=== PATIENT | male | born 2000 | race Caucasian/White ===

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

== ENCOUNTER 2022-07-08 02:45 | Emergency (ER) | payer MEDICAID, SELFPAY ==
[2022-07-08 02:48] VITALS: BP 134/73; PULSE 94; RESP 16; TEMP 37; O2SAT 97
--- NOTE | 2022-07-08 02:55 | ED.GENADUL_ITS ---
Discharge Plan Disposition Patient Disposition: Home Condition: Improving Discharge Details Clinical Impression: Vomiting, Abdominal pain Primary Care Provider: Riley Benjamin ED Provider: Ernestine Garcia Home Meds and New Rx's Prescriptions: No Action No Known Home Meds Discharge Instructions Instructions: Acute Nausea and Vomiting (ED), Abdominal Pain (ED) Additional Instructions: Your blood test today showed that you have an elevated white blood cell count which can be sometimes seen in a stress response with vomiting. One of your liver function tests were minimally elevated. This can be related to diet or alcohol. Follow-up with your primary care doctor for recheck of this test as needed. The remainder of your blood tests today are reassuring. Your COVID, influenza and RSV test today are negative. Drink plenty of fluids and get plenty of rest. Alternate tylenol and motrin as needed and directed for pain. Take Zofran as needed and directed for nausea and vomiting. You can start taking an [id number] Pepcid or Prilosec once daily for the next 2 weeks. Follow-up with your primary care doctor in 1 week. Return to the emergency department with any worsening or new concerning symptoms. Stand Alone Forms: Work Release Discharge Data Discharge Physician: Ernestine Garcia Medical Decision Making 0255 -- 22-year-old male presents with intermittent crampy upper abdominal pain yesterday much worse with 1 episode of vomiting starting 2 hours ago. Patient states the pain is much improved. His vitals are within normal limits. He appears comfortable and nontoxic. His abdomen is soft but tender in the left and right upper quadrants and left lower quadrant. He has no right lower quadrant tenderness, rebound, guarding or peritoneal signs. Differential diagnosis includes gastritis, PUD, cholelithiasis, cholecystitis. He has no right lower quadrant tenderness, so appendicitis less likely. Discussed with patient that we can proceed with CT imaging but he declines. He is agreeable with plan for blood work and will give a dose of IV Tylenol, IV Pepcid, IV Zofran and reassess. 0410 -- Labs reviewed. White blood cell count 12.77. AST minimally elevated at 58. Remainder of blood tests appear reassuring. FLUVID negative. Patient reassessed and he feels much better and would like to go home. He requested a work note. Patient advised to follow-up with his primary care doctor for reevaluation. He is advised to return here immediately if symptoms do not improve or worsen for reevaluation and consideration for CT imaging at that time. Medical Records Medical records reviewed: Yes I reviewed the patient's medical records. Lab Data Lab results reviewed: Yes I reviewed the patient's lab results. Labs: Laboratory Tests Range/Units 07/08/22 07/08/22 07/08/22 03:00 03:00 03:00 WBC (4.4-10.8) 10^3/uL 12.77 H RBC (4.36-5.78) 10^6/uL 5.13 Hgb (13.5-17.5) g/dL 15.1 Hct (40.0-50.0) % 42.6 MCV (80-95) fL 83 MCH (27.0-33.0) pg 29.4 MCHC (32.0-36.0) % 35.4 RDW (11.8-14.1) % 12.3 Plt Count (130-400) 10^3/uL 292 MPV (8.0-11.0) fL 9.1 Immature Gran % 0.5 Neutrophils % 85.4 Lymphocytes % 7.0 Monocytes % 6.5 Eosinophils % 0.4 Basophils % 0.2 Nucleated RBC % (0.0-0.3) % 0.0 Absolute Neutrophils (1.2-6.7) 10^3/uL 10.91 H Absolute Lymphocytes (1.2-3.4) 10^3/uL 0.89 L Absolute Monocytes (0.1-0.8) 10^3/uL 0.83 H Absolute Eosinophils (0.0-0.7) 10^3/uL 0.05 Absolute Basophils (0.0-0.2) 10^3/uL 0.03 Sodium (136-145) mmol/L 143 Potassium (3.5-5.1) mmol/L 3.6 Chloride (98-107) mmol/L 107 Carbon Dioxide (21.0-32.0) mmol/L 26.3 Anion Gap (3-11) mmol/L 9.7 BUN (7-18) mg/dL 14 Creatinine (0.70-1.30) mg/dL 1.1 Est GFR (CKD-EPI 2020) (mL/min/1.73m2) 97.95 Glucose (74-106) mg/dL 143 H Calcium (8.5-10.1) mg/dL 8.8 Total Bilirubin (0.2-1.0) mg/dL 0.9 AST (15-37) U/L 58 H ALT (16-63) U/L 59 Alkaline Phosphatase (46-116) U/L 87 Total Protein (6.4-8.2) g/dL 7.2 Albumin (3.4-5.0) g/dL 4.2 Lipase (16-77) U/L 38 COVID-19 Source Nasopharynx SARS-CoV-2 (PCR) (Negative) Negative Influenza Type A (PCR) (Negative) Negative Influenza Type B (PCR) (Negative) Negative RSV (PCR) (Negative) Negative HPI General Mode of arrival: ambulatory . Date/Time Provider Initiated Documentation: 07/08/22 02:49 . Limitations to Documentation: no limitations . Information obtained by: patient . HPI Narrative: Patient is a 22-year-old male who presents with intermittent abdominal pain yesterday much worse since 1 AM. Patient states he did not think much of the intermittent crampy abdominal pain yesterday. He states he ate a [employer] sandwich last night before bed. He states he woke up 2 hours ago with severe crampy upper abdominal pain. He states he vomited once and thought the pain would improve but then it returned. He states the vomit mostly consisted of the [employer] sandwich he ate last night. He denies any hematemesis. Patient states it was on both sides but mainly in the right upper side on the way to the emergency department. Patient states he did take 3 tabs of Advil prior to arrival and now the pain is much improved. He states the pain was 10/10 and is now 2/10. He denies any aggravating factors. He states he did drink 3 beers last night. He denies any history of abdominal surgeries. Related Data Home Medications Medication Instructions Recorded Confirmed Unknown [No Known Home Meds] 04/12/15 07/08/22 Allergies Allergy/AdvReac Type Severity Reaction Status Date / Time No Known Allergies Allergy Unverified 08/07/18 17:35 General Stated Complaint: Abd Prob HANY: 3 Review of Systems All systems reviewed & are unremarkable except as noted in HPI and below Constitutional Constitutional: Reports as per HPI, Denies chills and Denies fever(s) Eyes Eyes: Denies blurry vision ENT Ears, Nose, Mouth, and Throat: Denies dizziness, Denies sore throat and Denies throat swelling Cardiovascular Cardiovascular: Denies chest pain and Denies dyspnea Respiratory Respiratory: Denies cough and Denies dyspnea Gastrointestinal Gastrointestinal: Reports abdominal pain, Denies diarrhea and Reports vomiting Genitourinary Genitourinary: Denies hematuria and Denies dysuria Musculoskeletal Musculoskeletal: Denies back pain and Denies numbness Integumentary/Breasts Skin/Breast: Denies lesions and Denies rash Neurologic Neurologic: Denies dizziness, Denies localized weakness and Denies numbness Allergic/Immunologic Allergic/Immunologic: Denies throat swelling PFSH All Active Problems (Updated 07/08/22 @ 04:11 by Ernestine Garcia DO) Vomiting (Acute) Abdominal pain (Acute) Medical History (Updated 07/08/22 @ 04:11 by Ernestine Garcia DO) Osteochondroma of ankle Osteochondroma of forearm Surgical History (Updated 07/08/22 @ 03:49 by Ernestine Garcia DO) Osteochondroma left wrist, right ankle Social History Smoking/Tobacco Use Status: Never Smoking risk assessment performed?: Yes Alcohol Intake: current Alcohol Intake frequency: a few times a week Drug use: Never Substance use type: does not use Do you feel safe at home: Yes Do you feel safe in your relationship?: Yes Exam Const General: cooperative and no acute distress Orientation: alert, awake and oriented x3 HENMT Head: normal to inspection Face and sinus: normal facial exam Eyes General: appearance normal, both eyes and all related structures Pupils: PERRL EOM: EOM intact bilaterally Neck Neck: normal visual inspection and No submandibular swelling Lymphatic: no lymphadenopathy noted Chest Chest: normal inspection of the chest and no tenderness Resp Effort & Inspection: normal respiratory effort and able to speak in complete sentences Auscultation: clear to auscultation bilaterally Cardio Rate: regular rate Rhythm: regular rhythm GI Inspection: normal to inspection Palpation: soft, not firm, not rigid and tender in the epigastrum, in the LLQ, in the LUQ and in the RUQ Auscultation: hypoactive bowel sounds Back/Spine/Pelvis Thoracic/Lumbar Spine: thoracic and lumbar spine normal to inspection Pelvis: no pain with anterior-posterior compression Skin General skin exam: no rashes or lesions noted Neuro General: patient alert, patient awake and patient oriented x3 Cognition: normal cognition Speech: speech normal Motor: muscle tone normal throughout Sensory Exam: no sensory deficits noted Extrem General: normal to inspection, full ROM, capillary refill normal, no calf tenderness bilaterally and no edema Psych Appearance: grossly normal Mental Status: mental status grossly normal Speech and Movement: speech and movement normal Affect: normal affect Course Vital Signs Vital signs: Vital Signs Temperature 98.6 F 07/08/22 02:48 Pulse 94 H 07/08/22 02:48 Respiratory Rate 16 07/08/22 02:48 Blood Pressure 134/73 07/08/22 02:48 Pulse Oximetry 97 07/08/22 02:48 Temperature 98.6 F 07/08/22 02:48 Temperature Source Oral 07/08/22 02:48 Pulse 94 H 07/08/22 02:48 Respiratory Rate 16 07/08/22 02:48 Blood Pressure 134/73 07/08/22 02:48 Blood Pressure Position Sitting 07/08/22 02:48 Pulse Oximetry 97 07/08/22 02:48 Oxygen Delivery Method Room Air 07/08/22 02:48 Oxygen Flow Rate 0 07/08/22 02:48 Pain Level 6 07/08/22 02:48
[2022-07-08] MEDS: Normal Saline 1,000 ML 1000 ML IV (03:05)
[2022-07-08 03:12] LABS: Abs Immature Grans 0.06 10^3/uL (0.0-0.06); Absolute Eosinophil Count 0.05 10^3/uL (0.0-0.7); Absolute Monocyte Count 0.83 10^3/uL (0.1-0.8); Absolute Neutrophil Count 10.91 10^3/uL (1.2-6.7); Basophils % 0.2; Eosinophils % 0.4; HCT 42.6 % (40.0-50.0); HGB 15.1 g/dL (13.5-17.5); Immature Grans % 0.5; MCH 29.4 pg (27.0-33.0); MCHC 35.4 % (32.0-36.0); MCV 83 fL (80-95); MPV 9.1 fL (8.0-11.0); Monocytes % 6.5; Neutrophils % 85.4; Platelet Count 292 10^3/uL (130-400); RBC 5.13 10^6/uL (4.36-5.78); RDW 12.3 % (11.8-14.1); RDW-SD 37.4 fL; WBC 12.77 10^3/uL (4.4-10.8)
[2022-07-08 03:14] LABS: Absolute Basophil Count 0.03 10^3/uL (0.0-0.2); Absolute Lymphocyte Count 0.89 10^3/uL (1.2-3.4)
[2022-07-08 03:21] LABS: ALT 59 U/L (16-63); AST 58 U/L (15-37); Albumin 4.2 g/dL (3.4-5.0); Alkaline Phosphatase 87 U/L (46-116); Anion Gap 9.7 mmol/L (3-11); BUN 14 mg/dL (7-18); Bilirubin, Total 0.9 mg/dL (0.2-1.0); CO2 26.3 mmol/L (21.0-32.0); CREATININE 1.1 mg/dL (0.70-1.30); Calcium 8.8 mg/dL (8.5-10.1); Chloride 107 mmol/L (98-107); Estimated GFR 97.95 (mL/min/1.73m2); Glucose 143 mg/dL (74-106); Lipase 38 U/L (16-77); Potassium 3.6 mmol/L (3.5-5.1); Sodium 143 mmol/L (136-145); Total Protein 7.2 g/dL (6.4-8.2)
[2022-07-08] MEDS: Famotidine 20 MG/2 ML VIAL IVP (03:27)
[2022-07-08] MEDS: ACETAMINOPHEN 1,000 MG/100 ML BTL 400 MG IVPB (03:28)
[2022-07-08] MEDS: Ondansetron 4 MG/2 ML VIAL IVP (03:28)
[2022-07-08 03:44] LABS: COVID-19 PCR Negative (Negative); Influenza A PCR Negative (Negative); Influenza B PCR Negative (Negative); RSV PCR Negative (Negative)
[2022-07-08 04:04] LABS: Source Nasopharynx
[2022-07-08] MEDS: Ondansetron O.D.T. 4 MG TABEF, 3 TABS/BTL PO (04:23)
[2022-07-08 04:25] VITALS: BP 115/49; PULSE 69; RESP 16; TEMP 36.1; O2SAT 96
== END 2022-07-08 04:27 | disposition home or self-care (01) ==
PROVIDERS: Emergency Provider Physician Assistant; PCP Family Medicine
DX: R11.2 Nausea with vomiting, unspecified (principal); R10.11 Right upper quadrant pain; R10.12 Left upper quadrant pain; R10.32 Left lower quadrant pain; D72.829 Elevated white blood cell count, unspecified; R74.01 Elevation of levels of liver transaminase levels; Z20.822 Contact with and (suspected) exposure to COVID-19
CPT/HCPCS: 80053; 83690; 87637; 96361; 96374; 96375; 99284; 85025; J0131; J2405

== ENCOUNTER → 2022-11-25 13:24 | Outpatient (CLI) | payer MEDICAID, SELFPAY ==
--- NOTE | 2022-11-25 13:40 | DI.RAD_ITS ---
Exam(s) XR KNEE LT 4V AP,LAT,RAJEEV,PAT EXAM: XR KNEE LT 4V AP,LAT,RAJEEV,PAT CLINICAL HISTORY: evaluate pathology. TECHNIQUE: 2D digital imaging was performed of the left knee. Five images were obtained. Merchant, AP, lateral and PA tunnel views were obtained. COMPARISON: CR LEFT FEMUR from 06/19/2017 FINDINGS: BONES: No acute fracture is present. No bony destructive lesion is seen. There are several osteochon dromas present in the distal femur and proximal tibia. JOINTS: The knee is normally aligned. There is a small joint effusion. No loose body. SOFT TISSUE: Normal. IMPRESSION: 1. No acute fracture or dislocation. 2. Multiple osteochondromas seen in the proximal tibia, fibula and distal femur. 3. Small joint effusion. DATA REPOSITORY: RADIATION DOSE DELIVERED:
--- NOTE | 2022-11-25 13:52 | DI.VRAD_ITS ---
PROCEDURE INFORMATION: Exam: XR Left Knee Exam date and time: 11/25/2022 1:31 PM Age: 22 years old Clinical indication: Knee; Left; Prior surgery; Surgery date: 6+ months; Surgery type: HX osteochondroma; Patient HX: Pain post playing football TECHNIQUE: Imaging protocol: Radiologic exam of the left knee. Views: 4 or more views. COMPARISON: CR LEFT FEMUR 06/19/2017 8:18 AM FINDINGS: Bones/joints: Multiple osteochondromas again arise from the distal femur, with associated modeling deformity. There are also multiple osteochondromas arising from the proximal tibia and fibula. No acute fracture or dislocation is identified. Soft tissues: Mild fullness of the soft tissues in the suprapatellar region is noted. The soft tissues appear otherwise grossly unremarkable. IMPRESSION: 1. Mild suprapatellar soft tissue fullness suggesting effusion and/or synovial hypertrophy, without acute fracture or dislocation identified. 2. Osteochondromas of the distal femur and proximal tibia and fibula. Dictated and Authenticated by: Wade Fraser MD. Ordering:FELECIA Spears MD
== END ==
PROVIDERS: PCP Family Medicine; Visit Provider Nurse Practitioner Family
DX: D16.22 Benign neoplasm of long bones of left lower limb; M25.562 Pain in left knee
CPT/HCPCS: 73564

== ENCOUNTER 2022-12-08 07:42 | Emergency (ER) | payer MEDICAID, SELFPAY ==
[2022-12-08 07:44] VITALS: BP 117/71; PULSE 85; RESP 14; TEMP 37; O2SAT 99
--- NOTE | 2022-12-08 08:00 | DI.CT_ITS ---
Exam(s) CT HEAD CERVICAL SPINE WO EXAM: CT HEAD CERVICAL SPINE WO CLINICAL HISTORY: trauma. TECHNIQUE: Imaging Protocol: Axial computed tomography images with coronal and sagittal reformatted images were created and reviewed COMPARISON: No exams were available for comparison FINDINGS: Head CT Ventricles and Extra axial spaces: Normal in size and morphology for the patient's age. Hemorrhage: None. Cerebral parenchyma: Normal. No infarct or mass visible. Midline shift: None. Brainstem/Cerebellum: Low lying cerebellar tonsils. Not well evaluated due to artifact in this area. Calvarium: Normal. Visualized Paranasal sinuses/Mastoids: Clear. Soft tissues: Unremarkable. Cervical Spine CT BONES: Vertebral body heights are maintained. Alignment is normal. There is no evidence of acute frac ture. Degenerative disc changes and facet degenerative changes are seen . SOFT TISSUES: No paraspinal hematoma. The airway appears intact. No pneumothorax is seen at the lung apices. IMPRESSION: Head CT: No acute abnormality. Low lying cerebellar tonsils. MRI could be considered for further ev aluation. C-spine CT: Degenerative changes, no acute abnormality. Unexpected findings RADIATION DOSE DELIVERED: 1,261.57mGy.cm Total DLP DATA REPOSITORY: All CT scans at this facility are submitted to the National Radiology Data Registry (NRDR) Dose Index Registry (DIR) with the [employer] ([employer]). RADIATION OPTIMIZATION: All CT scans at this facility use at least one of these dose optimization te chniques: automated exposure control; mA and/or kV adjustment per patient size (includes targeted exa ms where dose is matched to clinical indication); or iterative reconstruction.
--- NOTE | 2022-12-08 08:00 | DI.RAD_ITS ---
Exam(s) XR CLAVICLE LT EXAM: XR CLAVICLE LT CLINICAL HISTORY: trauma TECHNIQUE: 2D digital imaging was performed. Two views COMPARISON: CR LEFT CLAVICLE from 05/04/2015 FINDINGS: BONES: Nondisplaced fracture mid clavicle. Patient had a previous clavicle fracture in a similar loc ation. This appears acute. Mild inferior angulation. No bony destructive lesion is seen. JOINTS: AC joint not widened. SOFT TISSUE: Unremarkable. IMPRESSION: Acute mid clavicle fracture. DATA REPOSITORY: RADIATION DOSE DELIVERED:
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
[2022-12-08] MEDS: Ibuprofen 600 MG TAB PO (08:16)
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
--- NOTE | 2022-12-08 09:06 | NUR.NOTE ---
Pt referred to Care Management for follow up in 3 days with a Primary Care due to a Head Injury Pt referred to Ortho for a Clavicle Fracture-Pt discharged with a sling. Nursing Note:
--- NOTE | 2022-12-10 10:27 | NUR.NOTE ---
Nursing Note: PT presented to the ED today for another work note. His employer wanted more information as to what he can and cannot do. Work note provided.
== END 2022-12-08 09:37 | disposition home or self-care (01) ==
PROVIDERS: Emergency Provider Nurse Practitioner Family; PCP Nurse Practitioner Family
DX: S06.0X0A Concussion without loss of consciousness, initial encounter (principal); S16.1XXA Strain of muscle, fascia and tendon at neck level, initial encounter; S42.025A Nondisplaced fracture of shaft of left clavicle, initial encounter for closed fracture; V86.06XA Driver of dirt bike or motor/cross bike injured in traffic accident, initial encounter; Y92.488 Other paved roadways as the place of occurrence of the external cause
CPT/HCPCS: 99284; 70450; 72125; 73000

== ENCOUNTER 2022-12-24 11:02 | Outpatient (CLI) | payer MEDICAID, SELFPAY ==
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
== END 2022-12-24 11:03 | disposition home or self-care (01) ==
LOC: DIORS 11:02
PROVIDERS: PCP Nurse Practitioner Family; Visit Provider Student in an Organized Health Care Education/Training Program
DX: S42.025D Nondisplaced fracture of shaft of left clavicle, subsequent encounter for fracture with routine healing (principal); X58.XXXD Exposure to other specified factors, subsequent encounter
CPT/HCPCS: 73000

== ENCOUNTER 2023-01-08 11:24 | Outpatient (CLI) | payer MEDICAID, SELFPAY ==
--- NOTE | 2023-01-08 10:00 | DI.RAD_ITS ---
Exam(s) XR CLAVICLE LT EXAM: XR CLAVICLE LT CLINICAL HISTORY: F/U CLAVICLE FRACTURE TECHNIQUE: 2D digital imaging was performed of the left clavicle. Two images were obtained. AP and axial views were obtained. COMPARISON: CR XR CLAVICLE LT from 12/24/2022 FINDINGS: BONES: There is stable alignment of the fracture of the left clavicle. The apex of the fracture is d irected cephalad. There is some callus formation about the fracture consistent with some interval he aling. No bony destructive lesion is seen. JOINTS: No dislocation present. SOFT TISSUE: The visualized lung is clear. IMPRESSION: Stable alignment of the left clavicular fracture. DATA REPOSITORY: RADIATION DOSE DELIVERED:
== END 2023-01-08 11:25 | disposition home or self-care (01) ==
LOC: DIORS 11:24
PROVIDERS: PCP Nurse Practitioner Family; Visit Provider Student in an Organized Health Care Education/Training Program
DX: S42.022D Displaced fracture of shaft of left clavicle, subsequent encounter for fracture with routine healing (principal); X58.XXXD Exposure to other specified factors, subsequent encounter
CPT/HCPCS: 73000

== ENCOUNTER 2023-02-05 08:13 | Outpatient (CLI) | payer MEDICAID, SELFPAY ==
--- NOTE | 2023-02-05 08:00 | DI.RAD_ITS ---
Exam(s) XR CLAVICLE LT EXAM: XR CLAVICLE LT CLINICAL HISTORY: F/U FRACTURE. TECHNIQUE: 2D digital imaging was performed. COMPARISON: CR XR CLAVICLE LT from 01/08/2023 FINDINGS: Two views. The midshaft left clavicle fracture site is again noted. No further displacement nor further increas ing angulation. There is some mild callus formation versus calcified hematoma on the inferior aspect the fracture site. AC joint is not distracted. No osseous lesions. No adjacent rib fracture seen. IMPRESSION: No radiographic change from 01/08/2023 DATA REPOSITORY: RADIATION DOSE DELIVERED:
== END 2023-02-05 08:14 | disposition home or self-care (01) ==
LOC: DIORS 08:13
PROVIDERS: PCP Nurse Practitioner Family; Visit Provider Student in an Organized Health Care Education/Training Program
DX: S42.025A Nondisplaced fracture of shaft of left clavicle, initial encounter for closed fracture (principal); X58.XXXA Exposure to other specified factors, initial encounter
CPT/HCPCS: 73000

== ENCOUNTER 2023-06-28 18:10 | Emergency (ER) | payer MEDICAID, SELFPAY ==
[2023-06-28 18:18] VITALS: BP 170/93; PULSE 89; RESP 18; TEMP 36.9; O2SAT 99
--- NOTE | 2023-06-28 19:15 | DI.CT_ITS ---
Exam(s) CT ABDOMEN PELVIS W EXAM: CT ABDOMEN PELVIS W CLINICAL HISTORY: abd pain, generalized cramping. TECHNIQUE: Imaging Protocol: Axial computed tomography images with coronal and sagittal reformatted images were created and reviewed CONTRAST MATERIAL: Intravenous: Omnipaque-350 100cc Oral: None COMPARISON: CR CHEST 2 VIEWS PA,LAT from 06/06/2011 FINDINGS: VISUALIZED LUNG BASES: No nodules nor pleural effusions evident. ABDOMEN: There is no ascites. LIVER: There are no focal hepatic lesions evident. No dilated intrahepatic ducts. GALLBLADDER/BILIARY: No obvious gallbladder pathology. CBD is not dilated. PANCREAS: No evidence of pancreatic mass nor dilatation of the pancreatic duct. SPLEEN: Spleen is not enlarged. No obvious intrasplenic lesions. Splenic and portal veins are paten t. ADRENALS: There are no significant adrenal masses. KIDNEYS:No cysts evident. No solid renal masses. No calculi nor hydronephrosis.. ABDOMINAL AORTA: Abdominal aorta is not enlarged. LYMPH NODES:There is no retroperitoneal nor paraaortic adenopathy. ABDOMINAL WALL: No evidence of significant anterior abdominal wall nor inguinal hernia. GI: There is no evidence of bowel obstruction, free air, nor abscess. PELVIS: GI: No evidence of appendicitis.No evidence of sigmoid diverticulitis. LYMPH NODES: There is no intrapelvic nor inguinal adenopathy. REPRODUCTIVE: Prostate size normal. URINARY BLADDER: No calculi nor obvious masses evident OSSEOUS: No fractures evident. There are multiple exostoses noted. These are seen off the posterior aspect of the right iliac bone, anterior aspect of left hip femoral neck and subtrochanteric region of the right hip. Also at the right ischial tuberosity level. IMPRESSION: 1. No acute findings in the abdomen and pelvis. No evidence of acute appendicitis. 2. 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 Probably involves additional bones not included in the field of view of this CT study. RADIATION DOSE DELIVERED: Total DLP DATA REPOSITORY: All CT scans at this facility are submitted to the National Radiology Data Registry (NRDR) Dose Index Registry (DIR) with the [employer] (A[employer]). RADIATION OPTIMIZATION: All CT scans at this facility use at least one of these dose optimization te chniques: automated exposure control; mA and/or kV adjustment per patient size (includes targeted exa ms where dose is matched to clinical indication); or iterative reconstruction.
[2023-06-28 19:22] VITALS: BP 170/93; PULSE 89; RESP 18; TEMP 36.9; O2SAT 99
[2023-06-28 19:27] LABS: Abs Immature Grans 0.04 10^3/uL (0.0-0.06); Absolute Basophil Count 0.04 10^3/uL (0.0-0.2); Absolute Eosinophil Count 0.09 10^3/uL (0.0-0.7); Absolute Lymphocyte Count 1.85 10^3/uL (1.2-3.4); Absolute Monocyte Count 0.99 10^3/uL (0.1-0.8); Absolute Neutrophil Count 6.74 10^3/uL (1.2-6.7); Basophils % 0.4; Eosinophils % 0.9; HCT 44.7 % (40.0-50.0); HGB 15.3 g/dL (13.5-17.5); Immature Grans % 0.4; MCH 29.1 pg (27.0-33.0); MCHC 34.2 % (32.0-36.0); MCV 85 fL (80-95); MPV 9.1 fL (8.0-11.0); Monocytes % 10.2; Neutrophils % 69.1; Platelet Count 298 10^3/uL (130-400); RBC 5.26 10^6/uL (4.36-5.78); RDW 12.1 % (11.8-14.1); RDW-SD 37.2 fL; WBC 9.75 10^3/uL (4.4-10.8)
[2023-06-28] MEDS: Omnipaque 350 MG/ML 100 ML BTL IJ (19:30)
[2023-06-28] MEDS: Normal Saline - Diluent 50 ML VIAL IJ (19:31)
[2023-06-28] MEDS: Ondansetron 4 MG/2 ML VIAL IVP (19:33)
[2023-06-28 19:46] LABS: ALT 47 U/L (16-63); AST 15 U/L (15-37); Albumin 4.2 g/dL (3.4-5.0); Alkaline Phosphatase 84 U/L (46-116); Anion Gap 9.2 mmol/L (3-11); BUN 12 mg/dL (7-18); Bilirubin, Total 0.3 mg/dL (0.2-1.0); CO2 27.8 mmol/L (21.0-32.0); CREATININE 0.9 mg/dL (0.70-1.30); Calcium 9.6 mg/dL (8.5-10.1); Chloride 103 mmol/L (98-107); Estimated GFR 123.84 (mL/min/1.73m2); Glucose 121 mg/dL (74-106); Lipase 17 U/L (16-77); Potassium 3.5 mmol/L (3.5-5.1); Sodium 140 mmol/L (136-145); Total Protein 7.8 g/dL (6.4-8.2)
[2023-06-28] MEDS: Normal Saline 1,000 ML 1000 ML IV (20:09)
--- NOTE | 2023-06-28 20:15 | ED.GENADUL_ITS ---
Discharge Plan Disposition Patient Disposition: Home Condition: Improving Discharge Details Chief Complaint: Abd Prob Clinical Impression: Abdominal pain Primary Care Provider: Lori Coronado ED Provider: Ramon Valenzuela Home Meds and New Rx's Prescriptions: No Action No Known Home Meds Discharge Instructions Instructions: Abdominal Pain (ED) Additional Instructions: Please follow-up with your primary care physician. HPI General Date/Time Provider Initiated Documentation: 06/28/23 19:09 . HPI Narrative: 23-year-old male presents with 3 days of abdominal pain worse at night cramping in nature generalized, no associated nausea vomiting or diarrhea, normal bowel movement today. No history of abdominal surgery. Related Data Home Medications Medication Instructions Recorded Confirmed Unknown [No Known Home Meds] 04/12/15 06/28/23 Allergies Allergy/AdvReac Type Severity Reaction Status Date / Time No Known Allergies Allergy Unverified 06/28/23 18:20 General Stated Complaint: Abd Prob HANY: 3 Review of Systems Narrative: Review of Systems Constitutional: negative Eyes: negative ENT: negative Cardiovascular: negative Respiratory: negative Gastrointestinal: Abdominal pain : negative Musculoskeletal: negative Skin: negative Neurologic: negative Psych: negative Exam Narrative Exam Narrative: Physical Examination General: alert, awake, cooperative, resting comfortably, no acute distress HEENT: normocephalic, atraumatic; PERRL, EOM intact, conjunctiva normal; no nasa l discharge; moist mucous membranes, oral and pharyngeal mucosa normal, tolerating secretions Neck: supple, trachea midline; full ROM Chest: normal to inspection Respiratory: normal respiratory effort, speaking in full sentences GI: abdomen soft, non-tender, non-distended; no palpable mass or hepatosplenomegaly Skin: no lesions, rashes or trauma appreciated Neuro: AAOx3, normal speech, moving all extremities Psych: Appropriate mood and affect Course Vital Signs Vital signs: Vital Signs Temperature 36.9 C 06/28/23 18:18 Pulse 89 06/28/23 18:18 Respiratory Rate 18 06/28/23 18:18 Blood Pressure 170/93 H 06/28/23 18:18 Pulse Oximetry 99 06/28/23 18:18 Temperature 36.9 C 06/28/23 19:22 Temperature Source Skin 06/28/23 19:22 Pulse 89 06/28/23 19:22 Respiratory Rate 18 06/28/23 19:22 Respiratory Effort Normal, Non-Labored 06/28/23 18:20 Blood Pressure 170/93 H 06/28/23 19:22 Blood Pressure Position Sitting 06/28/23 19:22 Pulse Oximetry 99 06/28/23 19:22 Oxygen Delivery Method Room Air 06/28/23 19:22 Oxygen Flow Rate 0 06/28/23 19:22 Pain Level 8 06/28/23 19:33 Lab/Test Results Lab/Test Results: Laboratory Tests Range/Units 06/28/23 19:18 WBC (4.4-10.8) 10^3/uL 9.75 RBC (4.36-5.78) 10^6/uL 5.26 Hgb (13.5-17.5) g/dL 15.3 Hct (40.0-50.0) % 44.7 MCV (80-95) fL 85 MCH (27.0-33.0) pg 29.1 MCHC (32.0-36.0) % 34.2 RDW (11.8-14.1) % 12.1 Plt Count (130-400) 10^3/uL 298 MPV (8.0-11.0) fL 9.1 Immature Gran % 0.4 Neutrophils % 69.1 Lymphocytes % 19.0 Monocytes % 10.2 Eosinophils % 0.9 Basophils % 0.4 Nucleated RBC % (0.0-0.3) % 0.0 Absolute Neutrophils (1.2-6.7) 10^3/uL 6.74 H Absolute Lymphocytes (1.2-3.4) 10^3/uL 1.85 Absolute Monocytes (0.1-0.8) 10^3/uL 0.99 H Absolute Eosinophils (0.0-0.7) 10^3/uL 0.09 Absolute Basophils (0.0-0.2) 10^3/uL 0.04 Sodium (136-145) mmol/L 140 Potassium (3.5-5.1) mmol/L 3.5 Chloride (98-107) mmol/L 103 Carbon Dioxide (21.0-32.0) mmol/L 27.8 Anion Gap (3-11) mmol/L 9.2 BUN (7-18) mg/dL 12 Creatinine (0.70-1.30) mg/dL 0.9 Est GFR (CKD-EPI 2021) (mL/min/1.73m2) 123.84 Glucose (74-106) mg/dL 121 H Calcium (8.5-10.1) mg/dL 9.6 Total Bilirubin (0.2-1.0) mg/dL 0.3 AST (15-37) U/L 15 ALT (16-63) U/L 47 Alkaline Phosphatase (46-116) U/L 84 Total Protein (6.4-8.2) g/dL 7.8 Albumin (3.4-5.0) g/dL 4.2 Lipase (16-77) U/L 17 Medical Decision Making 23-year-old male presents with 3 days of abdominal pain generalized in nature cramping in nature, worse in the evening/during sleep, no associated nausea vomiting or diarrhea, patient is afebrile nontoxic nonperitoneal nondistended no palpable mass, no history of abdominal surgery. Calm cooperative no acute distress. Consider enteritis versus colitis versus muscle strain low suspicion for appendicitis or cholecystitis low suspicion for malignancy or bowel obstruction. Screening labs imaging fluids antiemetics close reassessment 20: 54 patient resting comfortably no acute distress. Feeling better after fluids and antiemetics. Labs and imaging unremarkable. Home care instructions and strict return precautions given Quality:SDOH Health Related Social Needs: No Data to Display PFSH All Active Problems (Updated 06/28/23 @ 20:56 by Ramon Valenzuela MD) Abdominal pain (Acute) Closed left clavicular fracture (Acute 12/08/22) Medical History Osteochondroma of ankle Osteochondroma of forearm Surgical History Osteochondroma left wrist, right ankle Social History Smoking/Tobacco Use Status: Never Smoking risk assessment performed?: Yes Alcohol Intake: current Alcohol Intake frequency: a few times a week Drug use: Never Substance use type: does not use Current gender identity: male Do you feel safe at home: Yes Do you feel safe in your relationship?: Yes
--- NOTE | 2023-06-28 20:16 | DI.VRAD_ITS ---
PROCEDURE INFORMATION: Exam: CT Abdomen And Pelvis With Contrast Exam date and time: 06/28/2023 7:34 PM Age: 23 years old Clinical indication: Abdominal pain; Patient HX: Abd pain, generalized cramping TECHNIQUE: Imaging protocol: Computed tomography of the abdomen and pelvis with contrast. COMPARISON: MRI L LOWER JOINT WO CONT 07/07/2017 7:35 PM FINDINGS: Lungs: Tiny right lower lobe and left lower lobe pulmonary nodules likely benign in this patient's age. Follow-up as per institutional protocol. Liver: No mass. Gallbladder and bile ducts: No calcified stones. No ductal dilation. Pancreas: No ductal dilation. No masses. Spleen: No splenomegaly or focal lesions. Adrenal glands: No mass. Kidneys and ureters: No hydronephrosis. No renal masses. Stomach and bowel: Scattered colonic diverticula without inflammation. No colitis. No focal pathology in the small bowel. Appendix: Normal morphology of the appendix. Intraperitoneal space: No free air. No significant fluid collection. Vasculature: No abdominal aortic aneurysm. Lymph nodes: No significantly enlarged lymph nodes. Urinary bladder: Unremarkable as visualized. Reproductive: Unremarkable as visualized. Bones/joints: The appearance of the proximal femurs suggests the presence of multiple benign exostoses. No acute fracture or subluxation. Soft tissues: No suspicious lesions. IMPRESSION: 1. No acute findings. 2. Incidental findings as described. Dictated and Authenticated by: Meagan Segundo MD. Ordering:DONOVAN Navarro MD
[2023-06-28 21:08] VITALS: BP 125/60; PULSE 62; RESP 14; O2SAT 99
== END 2023-06-28 21:12 | disposition home or self-care (01) ==
PROVIDERS: Emergency Provider Emergency Medicine; PCP Nurse Practitioner Family
DX: R10.84 Generalized abdominal pain (principal)
CPT/HCPCS: 36415; 80053; 83690; 96361; 96374; 99285; 74177; 85025; 99284; J2405; J3490

== ENCOUNTER 2023-07-01 15:56 | Outpatient (CLI) | payer MEDICAID, SELFPAY ==
--- NOTE | 2023-07-01 14:45 | DI.RAD_ITS ---
Exam(s) XR CLAVICLE LT EXAM: XR CLAVICLE LT CLINICAL HISTORY: fracture follow up TECHNIQUE: 2D digital imaging was performed. Two views COMPARISON: CR XR CLAVICLE LT from 02/05/2023 FINDINGS: BONES: Continued healing at clavicle fracture. Mild residual deformity. No acute fracture is presen t. No bony destructive lesion is seen. JOINTS: AC joint not widened. SOFT TISSUE: Unremarkable. IMPRESSION: Clavicle fracture is nearly healed. DATA REPOSITORY: RADIATION DOSE DELIVERED:
== END 2023-07-01 15:57 | disposition home or self-care (01) ==
LOC: DIORS 15:56
PROVIDERS: PCP Nurse Practitioner Family; Visit Provider Physician Assistant
DX: S42.025D Nondisplaced fracture of shaft of left clavicle, subsequent encounter for fracture with routine healing (principal); X58.XXXD Exposure to other specified factors, subsequent encounter
CPT/HCPCS: 73000

== ENCOUNTER → 2023-07-17 04:23 | Outpatient (CLI) | payer MEDICAID, SELFPAY ==
--- NOTE | 2023-07-17 07:30 | DI.MRI_ITS ---
Exam(s) MR LOWER JOINT LT WO EXAM: MR LOWER JOINT LT WO CLINICAL HISTORY: ? Medial meniscal tear,INTERNAL DERANGEMENT LT KNEE,M23.92 TECHNIQUE: Multiplanar multisequence MRI of the knee was performed. COMPARISON: MR MRI L LOWER JOINT WO CONT from 07/07/2017 FINDINGS: EFFUSION: A small joint effusion. No evidence of dent cyst in the popliteal fossa. MARROW:There is mild bone contusion signal in the lateral tibial plateau. There is significantly les s bone edema in the medial tibial plateau and femoral condyles, when compared to the prior MRI scan o f June 2017, 5 years ago. There are no osteochondral defects. 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 No abnormal intraosseous signal at these levels to indicate malignant transformation. PATELLOFEMORAL COMPARTMENT: The quadriceps tendon is intact. The patellar ligament is intact. There is no significant thinning of the retropatellar cartilage. No evidence of fissure nor signific ant chondral defect. No osteochondral defect at this level.There is mild increased intraosseous sign al in the most medial aspect of the patella. No abnormal signal in the outer aspect of the lateral f emoral condyle and no evidence of patellar retinacular tear/no evidence to suggest recent lateral pat ellar dislocation. CRUCIATE LIGAMENTS: There is abnormal signal in the inferior half of the anterior cruciate ligament, not previously evident 5 years ago and consistent with interval injury/suspect partial tearingthe pos terior cruciate ligament is intact. MEDIAL COMPARTMENT/MEDIAL MENISCUS: There are no tears of the medial meniscus evident.There is mild m eniscocapsular separation when compared to the prior MRI scan 2018.. There is mild thinning of the ar ticular cartilage over the anterior aspect of the weight-bearing surface of the medial femoral condyl e. There are no large focal chondral defects, osteochondral defects, subarticular marrow edema, nor oste ophytes evident. MEDIAL COLLATERAL LIGAMENT: Mild sprain signal. No high-grade tear. LATERAL COMPARTMENT/LATERAL MENISCUS: There is no evidence of lateral meniscal tear.There are no coleman dral defects, osteochondral defects, subarticular marrow edema, nor osteophytes evident. ILIOTIBIAL BAND: Intact LATERAL COLLATERAL LIGAMENT COMPLEX: The fibular collateral ligament is intact. The biceps femoris t endon is intact.Popliteus muscle and tendon are intact. IMPRESSION: 1. Compared to the prior MRI scan of June 2017 there is again noted evidence of threaded tearing mul tiple exostoses involving the visualized distal femur and proximal tibia-fibula these broad-based ost eochondromas do not exhibit evidence of malignant transformation. 2. Increase signal in the inferior half of the anterior cruciate ligament is evident when compared to the images of 5 years ago, consistent with interval injury of this structure-partial tearing. The po sterior cruciate ligament is intact 3. There are no meniscal tears evident. However, there is mild meniscocapsular separation between the MCL and the medial meniscus which was not evident in 2018 and there is also mild sprain signal in th e medial collateral ligament (no high-grade tear). 4. There is very mild bone contusion signal in the lateral tibial plateau, significantly less than wa s evident at this level on the 2018 study. No abnormal intraosseous signal evident in the medial tibi al plateau nor within the femoral condyles. There are no osteochondral defects. There is mild-moderat e cartilage thinning over the anterior weight-bearing surface of the medial femoral condyle. 5. There is a small amount of increased joint fluid. No loose intra-articular bodies. No Dent cyst i n the popliteal fossa. DATA REPOSITORY:
== END ==
PROVIDERS: PCP Nurse Practitioner Family; Visit Provider Student in an Organized Health Care Education/Training Program
DX: M23.301 Other meniscus derangements, unspecified lateral meniscus, left knee (principal)
CPT/HCPCS: 73721

== ENCOUNTER 2023-12-17 10:17 | Emergency (ER) | payer MEDICAID, SELFPAY ==
--- NOTE | 2023-12-17 10:15 | RT.EKG_ITS ---
APPROVED REPORT Exam: Resting ECG Reason for Exam: chest pain Patient Location: E HR:87 bpm ECG Measurements Heart Rate 87 AXIS RI 144 P 129 QRSd 78 QRS -79 QT 325 T 18 QTc 392 Conclusion Sinus rhythm...normal P axis, V-rate 60- 99 Probable lateral infarct, old...Q>35mS, abnormal ST-T, V5-6 I aVL Abnormal T, probable ischemia, inferior leads...T <-0.40mV, II III aVF
[2023-12-17 10:20] VITALS: BP 129/87; PULSE 87; RESP 12; TEMP 36.8; O2SAT 98
[2023-12-17 10:40] VITALS: RESP 16
--- NOTE | 2023-12-17 10:55 | W.ED.GENAD ---
Discharge Plan Discharge Details Chief Complaint: Chest Pain Clinical Impression: Chest pain due to GERD Primary Care Provider: Unknown,Unknown ED Provider: Shyla Hendrix Home Meds and New Rx's Prescriptions: No Action No Known Home Meds Discharge Instructions Additional Instructions: I encourage you to call your primary care provider's office this week to set up an annual exam in the next couple months to discuss your heart burn. Your EKG was reassuring. You may use Pepcid chewables over the counter for heartburn as needed. I recommend that you decrease your alcohol intake, as this may definitely exacerbate your acid reflux. Return to emergency care if you develop new chest pains, difficulty breathing, dizziness, or if you are very worried and need to be rechecked again immediately HPI General Date/Time Provider Initiated Documentation: 12/17/23 10:52. HPI Narrative: Be is a 23-year-old male who presents to the emergency department today for evaluation of sternal chest pain that occurred while eating pizza for lunch. He reports that the chest pain started approximately an hour prior to arrival to ED, lasted approximately 20 minutes and resolved with drinking water and heating pad on his belly. This was not accompanied by any other symptoms such as dizziness, shortness of breath, nausea/vomiting, abdominal pain, change in bowel/bladder function, or weakness. Denies pedal edema, calf redness/swelling/tenderness, recent immobility or surgery, history of hormone use, history of cancer, family history of blood clots/sudden /connective tissue disorders. Generally is a healthy young person, says he last saw PCP approximately a year ago at [facility]. He does admit to drinking 5-6 beers most days, says he has been able to quit without difficulty in the past. He does think it is possible for him to cut back, says he has been thinking about it lately. Physical exam very reassuring. Patient is alert and oriented, no acute distress. Easy work of breathing, lung sounds clear bilaterally. Normal heart sounds. Abdomen soft, nondistended, nontender palpation. No calf swelling, tenderness. No pedal edema. History and presentation most consistent with acid reflux while eating pizza. Heart score 1, only due to risk factor of vaping. EKG reassuring, normal sinus rhythm, rate 87. No changes consistent with acute ischemia. As presentation is most consistent with acute heartburn that is now resolved and a low risk patient, no indication for high-sensitivity troponin or further evaluation at this time. Strongly recommend decreasing alcohol consumption. Recommend follow-up with PCP to schedule annual exam. Recommended use of famotidine [id number] as needed for heartburn. Reviewed red flags indicate need for return to emergency care. He voices agreement with plan of care. Related Data Home Medications ?Medication ?Instructions ?Recorded ?Confirmed Unknown [No Known Home Meds] 04/12/15 12/17/23 Allergies Allergy/AdvReac Type Severity Reaction Status Date / Time No Known Allergies Allergy Unverified 12/17/23 10:24 General Stated Complaint: Chest Pain HANY: 2 Review of Systems Narrative: see HPI Exam Const General: cooperative, healthy appearing, comfortable, no acute distress, well developed and well groomed Nutritional Appearance: average body habitus Orientation: alert and oriented x3 Neck Neck: normal visual inspection Chest Chest: normal inspection of the chest Resp Effort & Inspection: normal respiratory effort and able to speak in complete sentences Auscultation: clear to auscultation bilaterally Cardio Rate: regular rate Rhythm: regular rhythm GI Inspection: normal to inspection, no visible herniation and no visible pulsation Palpation: soft, not firm and nontender Extrem General: no pedal edema and no calf tenderness Course Vital Signs Vital signs: Vital Signs Temperature 36.8 C 12/17/23 10:20 Pulse 87 12/17/23 10:20 Respiratory Rate 12 12/17/23 10:20 Blood Pressure 129/87 12/17/23 10:20 Pulse Oximetry 98 12/17/23 10:20 Temperature 36.8 C 12/17/23 10:20 Pulse 87 12/17/23 10:20 Respiratory Rate 16 12/17/23 10:40 Respiratory Effort Normal, Non-Labored 12/17/23 10:40 Respiratory Depth Normal 12/17/23 10:40 Respiratory Pattern Normal 12/17/23 10:40 Blood Pressure 129/87 12/17/23 10:20 Pulse Oximetry 98 12/17/23 10:20 Oxygen Delivery Method Room Air 12/17/23 10:20 Oxygen Flow Rate 0 12/17/23 10:20 Pain Level 0 12/17/23 10:20 Comment 8/10 at its worse 12/17/23 10:20 Medical Decision Making Quality:SDOH Health Related Social Needs: No Data to Display PFSH All Active Problems (Updated 12/17/23 @ 10:53 by Shyla Rendon) Chest pain due to GERD (Acute) Multiple hereditary exostoses (Acute) MCL sprain of left knee (Acute) Medical History (Updated 12/17/23 @ 10:53 by Shyla Rendon) Closed left clavicular fracture (12/08/22) Osteochondroma of ankle Osteochondroma of forearm Surgical History Osteochondroma left wrist, right ankle Social History Smoking/Tobacco Use Status: Current every day Tobacco Type: e-cigarettes Smoking risk assessment performed?: Yes Alcohol Intake: current Alcohol Intake frequency: a few times a week Drug use: Never Substance use type: does not use Housing: house Current gender identity: male Do you feel safe at home: Yes Do you feel safe in your relationship?: Yes
[2023-12-17 11:12] VITALS: BP 120/63; PULSE 91; RESP 10; O2SAT 98
== END 2023-12-17 11:19 | disposition home or self-care (01) ==
LOC: ER 11:12
PROVIDERS: Emergency Provider Nurse Practitioner Family
DX: R07.89 Other chest pain (principal); K21.9 Gastro-esophageal reflux disease without esophagitis
CPT/HCPCS: 93005; 99283; 93010

== ENCOUNTER 2024-04-25 17:11 | Emergency (ER) | payer SELFPAY ==
[2024-04-25 17:19] VITALS: BP 137/67; PULSE 117; RESP 20; TEMP 37.3; O2SAT 94
--- NOTE | 2024-04-25 18:21 | ED.GENADUL_ITS ---
Discharge Plan Discharge Details Chief Complaint: RespSymp Clinical Impression: Influenza A Primary Care Provider: Unknown,Unknown ED Provider: Shyla Hendrix Home Meds and New Rx's Prescriptions: No Action No Known Home Meds Discharge Instructions Instructions: Flu, Adult ED Additional Instructions: You are POSITIVE for flu A. Please stay well hydrated, drinking plenty of fluids throughout the day. You may use ibuprofen 600 mg every 8 hours and tylenol 650 mg every 8 hours as needed for fever /chills or body aches. Get plenty of rest. Practice good handwashing and wear a mask in public if you are coughing to avoid spreading illness to others. A humidifier and saline nasal spray may be helpful to help reduce congestion and mobilize mucus. I recommend staying home until you have been fever free for 24 hours. Your heart rate is elevated today, this is most likely due to mild dehydration. Continue drinking plenty of fluids at home. Return to emergency care if you develop difficulty breathing, chest pains, worsening of cough or fever after initial improvement, or if you are very worried and need to be rechecked again immediately. HPI General Date/Time Provider Initiated Documentation: 04/25/24 17:12 . HPI Narrative: Be is a [] year old [] who presents to the emergency department today for evaluation of viral symptoms starting yesterday, including fever above 102, headache, body aches, congestion, nonproductive cough. Denies sore throat, chest pain, difficulty breathing, nausea/vomiting, abdominal pain, change in bowel or bladder function. Has been using ibuprofen for fever and bodyaches.. Past medical history is significant for [] Physical exam reasurring. Be is alert and oriented, no acute distress. Moist mucous membranes. Mild oropharyngeal erythema, no tonsillar hypertrophy/erythema/exudate. No cervical or submandibular lymphadenopathy. Easy work of breathing, lung sounds clear bilaterally. Normal heart sounds. History and presentation consistent with viral illness such as COVID or flu. No red flags concerning for secondary bacterial infection such as AOM, strep throat, or pneumonia. I independently interpreted the following tests: Flu/COVID [id number]. Significant for flu A positive. Tachycardia was noted while in the emergency department, consistent with mild dehydration. Be was able to drink a full glass of water while he was waiting in room. As patient is well-appearing and has no significant past medical history, Tamiflu would be unlikely to be beneficial. Reviewed discharge instructions with patient, including symptomatic management, importance of good hydration, and red flags indicating need for return to emergency care Related Data Home Medications ?Medication ?Instructions ?Recorded ?Confirmed Unknown [No Known Home Meds] 04/12/15 04/25/24 Allergies Allergy/AdvReac Type Severity Reaction Status Date / Time No Known Allergies Allergy Verified 04/25/24 17:21 General Stated Complaint: RespSymp HANY: 4 Review of Systems Narrative: See HPI Exam Const General: cooperative, healthy appearing, comfortable, no acute distress, well developed and well groomed Nutritional Appearance: average body habitus and well nourished Orientation: alert and oriented x3 HENMT Head: normal to inspection Ears: hearing grossly normal bilaterally General nose exam: external nose normal Face and sinus: normal facial exam Mouth: oral mucosae normal, lip normal and tongue normal Throat: posterior oropharynx abnormal erythema; no exudates Neck Neck: normal visual inspection, full ROM and no lymphadenopathy Resp Effort & Inspection: normal respiratory effort and able to speak in complete sentences Auscultation: clear to auscultation bilaterally Course Vital Signs Vital signs: Vital Signs Temperature 37.3 C 04/25/24 17:19 Pulse 117 H 04/25/24 17:19 Respiratory Rate 20 04/25/24 17:19 Blood Pressure 137/67 04/25/24 17:19 Pulse Oximetry 94 04/25/24 17:19 Temperature 37.3 C 04/25/24 17:19 Pulse 117 H 04/25/24 17:19 Respiratory Rate 20 04/25/24 17:19 Blood Pressure 137/67 04/25/24 17:19 Pulse Oximetry 94 04/25/24 17:19 Pain Level 0 04/25/24 17:19 Medical Decision Making Quality:SDOH Health Related Social Needs: No Data to Display PFSH All Active Problems (Updated 04/25/24 @ 18:53 by Shyla Rendon) Influenza A (Acute) Multiple hereditary exostoses (Acute) MCL sprain of left knee (Acute) Medical History (Updated 04/25/24 @ 18:53 by Shyla Rendon) Closed left clavicular fracture (12/08/22) Osteochondroma of ankle Osteochondroma of forearm Surgical History Osteochondroma left wrist, right ankle Social History Smoking/Tobacco Use Status: Current every day Tobacco Type: e-cigarettes Smoking risk assessment performed?: Yes Alcohol Intake: current Alcohol Intake frequency: a few times a week Drug use: Never Substance use type: does not use Housing: house Current gender identity: male Do you feel safe at home: Yes Do you feel safe in your relationship?: Yes
[2024-04-25 18:39] VITALS: BP 114/59; PULSE 110; TEMP 37.6; O2SAT 97
[2024-04-25 19:15] VITALS: BP 114/59; PULSE 110; TEMP 37.6; O2SAT 97
--- NOTE | 2024-04-26 08:18 | NUR.NOTE ---
Nursing Note: Received call from patient that he was here last evening and left prior to his swab results. Swab was positive for Flu A, pt updated.
== END 2024-04-25 19:15 | disposition home or self-care (01) ==
LOC: ER 18:02
PROVIDERS: Emergency Provider Nurse Practitioner Family
DX: J10.1 Influenza due to other identified influenza virus with other respiratory manifestations (principal); R50.9 Fever, unspecified; F17.290 Nicotine dependence, other tobacco product, uncomplicated; R05.1 Acute cough
CPT/HCPCS: 99282; 99283